=== PATIENT | female | born 1995 | race Caucasian/White ===

== ENCOUNTER 2025-06-19 06:14 | Emergency (ER) | payer BC ==
[~2025-06-19] VITALS: Ht 162.6 cm; Wt 59.9 kg
[2025-06-19] MEDS ORDERED: ACETAMINOPHEN ES 500 MG TABLET ONE (07:04)
[2025-06-19] MEDS: IV LR 1000 ML 1,000 ML BAG IV ONE ×2 (07:16→09:24)
[2025-06-19] MEDS: ACETAMINOPHEN 325 MG TABLET PO ONE (07:16)
[2025-06-19 07:25] LABS: PLATELET COUNT (AUTO) 300 K/uL (150-450); RED BLOOD CELL COUNT(AUTO) 3.93 MIL/uL (4.0-5.2); RED CELL DISTRIBUTION WIDTH 14.1 % (11.5-15.0); WHITE BLOOD COUNT (AUTO) 10.8 K/uL (4.3-11.0)
[2025-06-19 07:43] LABS: CALCIUM, SERUM 8.6 mg/dL (8.5-10.1); CREATININE 0.7 mg/dL (0.6-1.3); SODIUM SERUM 140 mmol/L (136-145); UREA NITROGEN, BLOOD 8 mg/dL (7-18)
[2025-06-19 07:46] LABS: AMPHETAMINE, URINE NEGATIVE (NEGATIVE); BARBITURATE, URINE NEGATIVE (NEGATIVE); BENZODIAZEPINE, URINE NEGATIVE (NEGATIVE); COCCAINE, URINE NEGATIVE (NEGATIVE); OPIATE, URINE NEGATIVE (NEGATIVE)
[2025-06-19 07:46] LABS: CREATINE KINASE, TOTAL 630.0 U/L (26-192)
[2025-06-19 07:47] LABS: CANNABINOID, URINE POSITIVE (NEGATIVE)
[2025-06-19 07:48] LABS: ALCOHOL, BLOOD < 3 mg/dL (0-10); ASPARTATE AMINOTRANSFERASE 33 U/L (15-37); TOTAL PROTEIN, SERUM 6.8 g/dL (6.4-8.2)
[2025-06-19 08:22] LABS: APPEARANCE,URINE CLEAR (CLEAR); BLOOD, URINE 3+ Ery/uL (NEGATIVE); LEUKOCYTE ESTERASE ,URINE 3+ (NEGATIVE); NITRITE, URINE NEGATIVE (NEGATIVE); UGLUCOSE NEGATIVE (NEGATIVE)
[2025-06-19 08:24] LABS: PREGNANCY TEST URINE QUAL NEGATIVE (NEGATIVE)
[2025-06-19 08:48] LABS: ADD URINE CULTURE YES; SQUAMOUS EPITHELIAL CELL,UR 0-2 /HPF (None Seen)
[2025-06-19] MEDS ORDERED: LEVO250T59 PO (10:18)
[2025-06-19 11:17] VITALS: BP 111/78; TEMP 98.5; O2SAT 98
== END 2025-06-19 11:18 | disposition home or self-care (01) ==
LOC: ER 06:19
DX: S00.512A Abrasion of oral cavity, initial encounter (principal); M79.10 Myalgia, unspecified site; R51.9 Headache, unspecified; N39.0 Urinary tract infection, site not specified; R56.9 Unspecified convulsions; Z88.0 Allergy status to penicillin; Z88.1 Allergy status to other antibiotic agents; Z86.59 Personal history of other mental and behavioral disorders; Z60.2 Problems related to living alone; Z88.8 Allergy status to other drugs, medicaments and biological substances; X58.XXXA Exposure to other specified factors, initial encounter; Y93.89 Activity, other specified; Y92.89 Other specified places as the place of occurrence of the external cause; Y99.8 Other external cause status
CPT/HCPCS: 99284; 96360; 96361; 93005; 70450; 85025; 80048; 87077; 82550; 87086; 80076; 84703; 87186; 81001; 36415; 80178; 80320; 80307; J3490 ×2; J7120 ×2; A4223; G0480